=== PATIENT | female | born 1960 | race Hispanic/Latino ===

== ENCOUNTER → 2020-11-26 | Outpatient (CLI) | payer OTHER | LOC: DX 15:49 | PROVIDERS: ATTEND Internal Medicine | DX: Z13.820 Encounter for screening for osteoporosis (principal); Z00.00 Encounter for general adult medical examination without abnormal findings | CPT/HCPCS: 71046; 77080 ==

== ENCOUNTER → 2020-12-27 | Outpatient (CLI) | payer BC, OTHER | LOC: MAMMO 13:13 | PROVIDERS: ATTEND Internal Medicine | DX: Z12.31 Encounter for screening mammogram for malignant neoplasm of breast (principal) | CPT/HCPCS: 77067 ==